=== PATIENT | female | born 1950 | race Caucasian/White ===

== ENCOUNTER 2019-04-06 12:46 | Emergency (ER) | payer MEDICARE, OTHER ==
[2019-04-06 12:57] VITALS: BP 114/66
--- NOTE | 2019-04-06 13:41 | ED Physician Documentation ---
PD HPI HEENT - Stated complaint Stated Complaint: NOSE PX - Chief complaint Chief Complaint: Heent - History obtained from History obtained from: Patient - History of Present Illness Timing - onset: How many weeks ago (3) Timing - duration: Weeks (3) Timing - details: Gradual onset Location: Nose Associated symptoms: No: Fever Similar symptoms before: Has not had sx before Recently seen: Not recently seen - Additional information Additional information: Is a 68-year-old cancer survivor who had her last chemotherapy in [place] a tender area in her left naris about the past 3 weeks. Been getting increasingly painful so she took a look inside of her nose and noticed a red crusting area at the top of the nostril. She said she feels funny with a "heavy head" but no fever. There is no blood from the wound or discharge. She is never had anything like this before. Denies sore throat. She does not use any nasal sprays. Review of Systems Constitutional: denies: Fever Nose: denies: Congestion, Epistaxis, Sinus pressure / pain Throat: denies: Sore throat Skin: reports: Other (No other wounds on her body.) PD PAST MEDICAL HISTORY - Past Medical History Past Medical History: Yes Other Past Medical History: "cancer survivor" - Past Surgical History Past Surgical History: No - Present Medications Home Medications: Ambulatory Orders Medication Instructions Recorded Confirmed Cranberry 500 mg PO 04/06/19 Gabapentin 600 mg PO 04/06/19 Multivitamin [Multivitamins] 04/06/19 Mupirocin 22 gm TOP BID #1 oint...g. 04/06/19 - Allergies Allergies/Adverse Reactions: Allergies Allergy/AdvReac Type Severity Reaction Status Date / Time Penicillins Allergy Anaphylaxis Verified 04/06/19 12:58 Sulfa (Sulfonamide Allergy Rash Verified 04/06/19 12:58 Antibiotics) - Social History Does the pt smoke?: No Smoking Status: Never smoker PD ED PE NORMAL - Vitals Vital signs reviewed: Yes - General General: Alert and oriented X 3, No acute distress, Well developed/nourished - HEENT HEENT: Atraumatic, PERRL, EOMI, Moist mucous membranes, Pharynx benign, Other (There is no external swelling of the nose. The apex of the left nares there is aDried scab the lesion without any swelling. No bleeding.) - Cardiac Cardiac: RRR - Derm Derm: Normal color - Neuro Neuro: Other (No obvious neurological deficits.) - Psych Psych: Normal mood, Normal affect Results - Vitals Vitals: Vital Signs - 24 hr 04/06/19 12:56 Temperature 36.7 C Heart Rate 73 Respiratory 16 Rate Blood Pressure 114/66 O2 Saturation 99 Oxygen O2 Source Room air PD MEDICAL DECISION MAKING - ED course Complexity details: d/w patient, d/w family ED course: Nasal MRSA screen will be obtained. The patient will be placed on Bactroban ointment and instructed on its use. Follow-up with primary care provider if this is not improving. Departure - Departure Disposition: 01 Home, Self Care Clinical Impression: Internal nasal lesion Condition: Good Instructions: ED Staph Infec Abx Tx Only Prescriptions: Mupirocin 22 gm TOP BID #1 oint...g. Comments: Use the Bactroban ointment as discussed in the left nares twice a day for 10 to 14 days. Ibuprofen can help with the tenderness that you are feeling. Follow- up with a local primary care provider for further management if this is not improving.
== END 2019-04-06 14:29 | disposition home or self-care (01) ==
LOC: ED 12:46
DX: J34.89 Other specified disorders of nose and nasal sinuses (principal)
CPT/HCPCS: 87640; 99283; 99284

== ENCOUNTER 2020-08-27 12:28 | Outpatient (CLI) | payer MEDICARE, OTHER ==
--- NOTE | 2020-08-27 17:12 | CT Report ---
PROCEDURE: Abdomen/Pelvis WO INDICATIONS: ABD PAIN TECHNIQUE: Noncontrast 5 mm thick sections acquired from the diaphragms to the symphysis. 5 mm coronal and sagi ttal reformats were then performed. For radiation dose reduction, the following was used: automated exposure control, adjustment of mA and/or kV according to patient size. COMPARISON: None. FINDINGS: Image quality: Excellent. ABDOMEN: Lung bases: Lung bases are clear. Heart size is normal. Solid organs: Liver and spleen are normal in size. Gallbladder is unremarkable. Pancreas is normal in contours. No adrenal nodules. Kidneys are normal in size, without hydronephrosis or nephrolithi asis. Peritoneum and bowel: Unenhanced bowel loops demonstrate normal wall thickness and caliber. No free fluid or air. Nodes and vessels: No retroperitoneal or mesenteric adenopathy by size criteria. Aorta and inferior vena cava are normal in caliber. Mild atherosclerotic calcifications. Miscellaneous: No ventral hernias. PELVIS: Genitourinary: Bladder wall thickness is normal. Miscellaneous: No inguinal hernias or adenopathy. Uterus is surgically absent. Bones: No suspicious bony lesions. No vertebral body compression fractures. Scoliotic curvature, w ith convexity to the right, centered at L2-L3. IMPRESSION: No evidence of acute abdominal process. Reviewed by: Fernando Koenig MD on 08/27/2020 5:10 PM PST Approved by: Fernando Koenig MD on 08/27/2020 5:10 PM PST Station ID: [id number]
== END 2020-08-27 12:29 | disposition home or self-care (01) ==
LOC: DI 12:28
PROVIDERS: ATTEND Physician Assistant
DX: R10.33 Periumbilical pain (principal); R10.10 Upper abdominal pain, unspecified
CPT/HCPCS: 74176

== ENCOUNTER 2020-11-26 07:56 | Outpatient (CLI) | payer MEDICARE, OTHER ==
--- NOTE | 2020-11-26 09:49 | Ultrasound Report ---
PROCEDURE: Abdomen Limited INDICATIONS: RUQ PAIN TECHNIQUE: Real-time focused scanning was performed of the abdomen, with image documentation. COMPARISON: 08/27/2020 FINDINGS: There is an approximately 5 mm gallbladder polyp. The gallbladder is otherwise normal. Nor mal size and appearance of the liver. Pancreas is unremarkable. No intrahepatic or extra hepatic bili carlos ductal dilatation. The right kidney is normal. IMPRESSION: Approximately 5 mm gallbladder polyp. Otherwise normal study. Reviewed by: Thom Rowan MD on 11/26/2020 9:48 AM PDT Approved by: Thom Rowan MD on 11/26/2020 9:48 AM PDT Station ID: [id number]
== END 2020-11-26 07:57 | disposition home or self-care (01) ==
LOC: DI 07:56
PROVIDERS: ATTEND Internal Medicine
DX: K82.4 Cholesterolosis of gallbladder (principal)

== ENCOUNTER 2021-01-01 11:51 | Outpatient (CLI) | payer MEDICARE, OTHER ==
[2021-01-01] MEDS ORDERED: IOPAMIDOL-300 100 ML VIAL ONE (11:55)
[2021-01-01] MEDS ORDERED: IOPAMIDOL-300 100 ML VIAL IVP ONE (13:08)
--- NOTE | 2021-01-01 13:09 | XRAY Report ---
PROCEDURE: Chest 2 View X-Ray INDICATIONS: Chronic abdominal pain TECHNIQUE: 2 view(s) of the chest. COMPARISON: None. FINDINGS: Surgical changes and devices: None. Lungs and pleura: No pleural effusions or pneumothorax. Lungs are clear. Mediastinum: Mediastinal contours are normal. Heart size is normal. Bones and chest wall: No suspicious bony abnormalities. Soft tissues appear unremarkable. IMPRESSION: No acute cardiopulmonary process demonstrated radiographically. Reviewed by: Thom Rowan MD on 01/01/2021 1:07 PM PDT Approved by: Thom Rowan MD on 01/01/2021 1:07 PM PDT Station ID: [id number]
--- NOTE | 2021-01-01 17:01 | CT Report ---
PROCEDURE: Abdomen/Pelvis W INDICATIONS: CHRONIC ABD PAIN CONTRAST: IV CONTRAST: Isovue 300 ml: 100 PO CONTRAST: *NO PO CONTRAST TECHNIQUE: After the administration of contrast, 5 mm thick sections acquired from the diaphragms to the sym physis. 5 mm thick coronal and sagittal reformats were acquired. For radiation dose reduction, the following was used: automated exposure control, adjustment of mA and/or kV according to patient size . COMPARISON: None. FINDINGS: Image quality: Excellent. ABDOMEN: Lung bases: Lung bases are clear. Heart size is normal. Solid organs: Liver and spleen are normal in size and enhancement. Gallbladder appears normal Bili carlos system is non dilated. Pancreas enhances normally. No adrenal nodules. Kidneys demonstrate nor mal size and enhancement, without hydronephrosis. Peritoneum and bowel: Bowel loops demonstrate normal wall thickness and caliber. No free fluid or a ir. There is right-sided and transverse colonic obstipation. Nodes and vessels: No retroperitoneal or mesenteric adenopathy by size criteria. Aorta and inferior vena cava are normal in size. Miscellaneous: No ventral hernias. PELVIS: Genitourinary: Bladder wall thickness is normal. Miscellaneous: No inguinal hernias or adenopathy. Colonic obstipation extends from the abdomen into the pelvis, best seen on the right. Bones: No suspicious bony lesions. No vertebral body compression fractures. IMPRESSION: An inflammatory process is not found. No suspicion for presence of neoplasm at this time . Note is made of bilateral colonic obstipation, right greater than left, with relative sparing of th e left:, And no partially obstructive: Lesion at the area of the splenic flexure is identified. No bi liary distention, no urinary tract stones, normal gallbladder appearance. Reviewed by: Jefry Gonsalves MD on 01/01/2021 4:59 PM PDT Approved by: Jefry Gonsalves MD on 01/01/2021 4:59 PM PDT Station ID: [id number]
== END 2021-01-01 11:52 | disposition home or self-care (01) ==
LOC: DI 11:51
PROVIDERS: ATTEND Internal Medicine
DX: R10.9 Unspecified abdominal pain (principal); G89.29 Other chronic pain; K59.00 Constipation, unspecified
CPT/HCPCS: 71046; 74177; Q9967